=== PATIENT | male | born 1945 | race Caucasian/White ===

== ENCOUNTER → 2017-02-11 | Outpatient (CLI) | payer OTHER | END | disposition home or self-care (01) | LOC: GMAH 11:55 | PROVIDERS: ATTEND Family Medicine | DX: R63.0 Anorexia (principal) ==

== ENCOUNTER → 2017-02-18 | Outpatient (CLI) | payer OTHER ==
--- NOTE | 2017-02-18 20:53 | CT ---
EXAM DESCRIPTION: Abdomen/Pelvis w/o Contrast: CT. CLINICAL HISTORY: ANOREXIA COMPARISON: CT abdomen and pelvis 03/14/2016. TECHNIQUE: Spiral-axial scans at 5.0 mm intervals through the abdomen and pelvis after Gastrografin water-soluble oral contrast. Coronal and sagittal 2.0 mm reconstructions. No IV contrast. Total Exam DLP: 836.19 mGy-cm. This exam was performed according to our departmental CT dose-optimization program which includes automated exposure control, adjustment of the mA and/or kV according to patient size and/or use of iterative reconstruction technique; to reduce radiation dose to as low as reasonably achievable (ALARA). FINDINGS: Lung bases and pleura: Negative. Liver, spleen, stomach, and adrenal glands: Oral contrast in the stomach and duodenum which are normal caliber. Other organs are unremarkable. Pancreas/Gallbladder/Ducts: Gallbladder is visualized. Pancreas and ducts are negative. Kidneys and Ureters: Again noted is atrophy of the right kidney with cortical thinning and perinephric stranding. A millimeter radiodense stone in the inferior collecting system which is markedly dilated and extends into the proximally dilated right ureter with abrupt transition point to normal caliber at the level of the L4 vertebra. Radiodense material visualized in the lateral aspect of the distal dilated. This material measures 2.7 mm in diameter. Distal to this transition point, the right ureter is normal caliber. A stent in the kidney rather urinary bladder on the prior scan has been removed. 3.5 mm stone in the inferior collecting system of the left kidney but no hydronephrosis or hydroureter. Calcification in the pelvis abutting the distal left ureter and UVJ as well as bilateral surgical clips. No significant perinephric fluid or thickening around the left kidney. Pelvic Organs: No radiodense stones in the urinary bladder. Significant impression of the enlarged prostate gland indenting the base of the urinary bladder almost abutting the ureterovesical junctions. Calcification in the central and left aspect of the prostate gland which is also impressing on the seminal vesicles. No fluid in the anterior peritoneal reflection. Mesentery: Minimal perinephric thickening bilaterally right more than left. No free air or free fluid. Aorta: Atherosclerotic calcification more prevalent mid and distally. No definite aneurysm. Small Bowel: Contains oral contrast with minimal gas and no significant distention. Terminal Ileum/Cecum: Minimal oral contrast in the terminal ileum and cecum. Appendix is not visualized. Colon: Fecal material throughout the remainder of the colon including the rectosigmoid. No distention or significant air-fluid levels. Spine and bony pelvis: Spondylosis and grade 1 anterolisthesis of L5-S1 with bilateral significant foraminal narrowing. Spondylosis also at L2-3 with an L3-4 with bilateral foraminal narrowing significant at L2-3. Schmorl's node inferior L2. Minimal spondylosis in the included thoracic spine. No bone destruction.. Abdominal Wall/Back Soft Tissues: Unremarkable. IMPRESSION: 1. Right ureteral stent has been removed since the prior study. Trace hydronephrosis in the right kidney with cortical atrophy. Proximal right hydroureter with abrupt transition point at the L4 level and small calcification in the lateral distal aspect of the proximal dilated segment. Distal two thirds of the right ureter normal caliber. Normal caliber of the left ureter. Small bilateral intrarenal stones. 2. Enlarged prostate gland again noted to be impressing on the base of the urinary bladder. 3. L5-S1 spondylolisthesis with grade 1 anterolisthesis and bilateral significant foraminal narrowing. Also significant bilateral foraminal narrowing with spondylosis at L2-3. Table since the prior study. Electronically signed by: Rolan Acevedo MD 02/18/2017 8:51 PM [employer] Workstation: [employer]
== END | disposition home or self-care (01) ==
LOC: CT 09:07
PROVIDERS: ATTEND Family Medicine
DX: R63.0 Anorexia (principal)

== ENCOUNTER → 2017-04-04 | Outpatient (CLI) | payer OTHER | END | disposition home or self-care (01) | LOC: LAB.O 09:47 | PROVIDERS: ATTEND Internal Medicine Gastroenterology | DX: R19.7 Diarrhea, unspecified (principal) ==

== ENCOUNTER → 2017-04-05 | Outpatient (CLI) | payer OTHER ==
--- NOTE | 2017-04-05 14:40 | MRI ---
EXAM DESCRIPTION: Brain w/wo Contrast: Magnetic Resonance Imaging. CLINICAL HISTORY: ABNORMAL BRAIN SCAN. Loss of taste sensation. COMPARISON: None available. TECHNIQUE: Multiplanar, without MRI, multiple conventional sequences, without and with gadolinium IV contrast. No adverse reactions. Multiple axial diffusion sequences. FINDINGS: Small foci of bright FLAIR and T2-weighted signal in the subcortical white matter of the right frontal lobe at the level of the frontal horns and also at the right frontoparietal junction in the parasagittal region, near the vertex. A third lesion is in the subcortical white matter parasagittal right occipital lobe at the level of the mid occipital horns and third ventricle. These lesions are less than 5 mm diameter and are enhancing. Central signal dropout on 3-D postcontrast images. Also bright on all diffusion sequences. Not associated with significant mass effect or cerebral edema. Other small focal white matter lesions do not enhance. Normal signal in the bilateral basal ganglia, and normal enhancement. No hemorrhage, no cerebral edema, no mass-effect. Normal signal in the brainstem and cerebellar hemispheres. No hemorrhage, no cerebral edema, no mass-effect. Normal contrast enhancement. Cortical sulci, ventricles, and other CSF spaces, and the subdural spaces are age appropriate. No effacement or displacement. No midline shift. No extra-axial hemorrhage. Normal contrast enhancement. Normal flow signal void in the major vessels of the lovelock Garza, and the venous sinuses. IACs are symmetric bilaterally. No fluid signal in the bilateral mastoid air cells. No mass effect in the bilateral Cerebellopontine angles. Normal contrast enhancement. Pituitary gland occupies approximately 50% of the sella. Normal contrast enhancement. Base of the cerebellar tonsils is at the level of the foramen magnum. Mucoperiosteal thickening and air-fluid level in the right maxillary antrum. Diffuse mucosal thickening and fluid in the right nasal passageway. Yola bullosa left middle turbinate. Diffuse thickening and fluid in the anterior ethmoid air cells. Other paranasal sinuses are unremarkable. The bony calvarium is intact. IMPRESSION: 1. 3 lesions in the right hemisphere frontal parietal and occipital lobes. Less than 5 mm diameter with peripheral enhancement and central signal dropout, no significant mass effect or cerebral edema, right on all diffusion sequences, also bright T2 and FLAIR sequences. Low signal on T1 with no hemorrhage. Differential includes small embolic strokes, embolic inflammatory process, embolic tumor or infection. Nonembolic processes would be expected to be bilateral. There is minimal periventricular white matter changes which are most likely age-related. 2. No hemorrhage mass effect or cerebral edema or midline shift. No diffuse ischemia or infarction. Neurologic consult is recommended. 3. Acute and chronic inflammatory process in the right maxillary antrum, right nasal passage, and bilateral ethmoid air cells. Chronic process in the right frontal sinus. Yola bullosa in the left middle turbinate. CRITICAL COMMUNICATION: The critical value was discussed directly by phone with Dr. Jewell at approximately 1420 hours, on 04/05/2017. Electronically signed by: Rolan Acevedo MD 04/05/2017 2:39 PM [facility]
== END | disposition home or self-care (01) ==
LOC: MRI 08:41
PROVIDERS: ATTEND Internal Medicine Gastroenterology
DX: R94.02 Abnormal brain scan (principal)

== ENCOUNTER → 2017-04-18 | Outpatient (CLI) | payer OTHER | LOC: LAB.O 13:41 | PROVIDERS: ATTEND Psychiatry & Neurology Neurology | DX: M45.0 Ankylosing spondylitis of multiple sites in spine (principal); E03.9 Hypothyroidism, unspecified; E78.4 Other hyperlipidemia; G35 Multiple sclerosis; H81.49 Vertigo of central origin, unspecified ear; M32.10 Systemic lupus erythematosus, organ or system involvement unspecified; M35.1 Other overlap syndromes; G70.00 Myasthenia gravis without (acute) exacerbation; G04.89 Other myelitis; M54.81 Occipital neuralgia; H46.9 Unspecified optic neuritis; M81.8 Other osteoporosis without current pathological fracture; M35.3 Polymyalgia rheumatica; M33.22 Polymyositis with myopathy; G61.81 Chronic inflammatory demyelinating polyneuritis; I73.00 Raynaud's syndrome without gangrene; M06.9 Rheumatoid arthritis, unspecified; D86.9 Sarcoidosis, unspecified; M35.00 Sjogren syndrome, unspecified; M31.6 Other giant cell arteritis; G50.0 Trigeminal neuralgia; I77.9 Disorder of arteries and arterioles, unspecified; E53.8 Deficiency of other specified B group vitamins; E55.9 Vitamin D deficiency, unspecified ==

== ENCOUNTER → 2017-05-16 | Outpatient (CLI) | payer OTHER | LOC: LAB.O 12:22 | PROVIDERS: ATTEND Psychiatry & Neurology Neurology | DX: D47.2 Monoclonal gammopathy (principal) ==

== ENCOUNTER → 2017-07-17 | Outpatient (CLI) | payer OTHER | LOC: LAB.O 12:53 | PROVIDERS: ATTEND Internal Medicine Gastroenterology | DX: D50.0 Iron deficiency anemia secondary to blood loss (chronic) (principal) ==

== ENCOUNTER 2017-08-14 09:20 | Emergency (ER) | payer OTHER ==
--- NOTE | 2017-08-14 11:06 | RAD ---
EXAM DESCRIPTION: Chest,1 View CLINICAL HISTORY: 72 years Male, syncope COMPARISON: None. TECHNIQUE: AP portable chest. FINDINGS: Heart size is normal with normal pulmonary vascularity. Opaque right upper thorax is seen which could be atelectasis of the right upper lobe are previous pneumonectomy. Clinical correlation recommended. If this is a new development, CT of the chest is recommended to rule out central obstructing tumor with secondary atelectasis. No left-sided pulmonary mass or worrisome nodule. No pneumothorax or pleural effusion. Bones are unremarkable. IMPRESSION: Opacity of the right upper thorax suggesting right upper lobe atelectasis. CT of the chest is recommended. Electronically signed by: Jorgito Jose MD 08/14/2017 11:05 AM CDT
--- NOTE | 2017-08-14 14:02 | CT ---
EXAM DESCRIPTION: CTA Chest CLINICAL HISTORY: 72 years Male, mild hypoxia, syncope, mild low bp, ddimer COMPARISON: None available TECHNIQUE: Contiguous thin section axial images through the chest were obtained after the administration of intravenous contrast. Sagittal and coronal reconstructions were reviewed. FINDINGS: The visualized thyroid gland and supraclavicular region appear normal. No evidence of abnormally enlarged mediastinal, hilar or axillary lymphadenopathy. 12.5 x 8.8 x 11 cm mass is identified in the right upper lobe, encasing the right upper lobe bronchovascular structures. There is resultant abrupt cut off of the right upper lobe pulmonary artery. Remainder of the pulmonary vasculature appears normal. There is erosion of the right second rib. This is highly concerning for malignancy. There is a small right pleural effusion as well. No nodules are visualized in the left lung. The heart is normal in size with no pericardial effusion. The visualized aorta is nonaneurysmal with no significant atherosclerosis. The superior vena cava is normal in size and caliber. Minimal coronary artery atherosclerosis. The esophagus appears normal throughout its visualized length. Indeterminate hypodensity is identified in the upper pole of the right kidney. This most likely represents dilated renal pelvis. No other abnormality is noted in the imaged upper abdomen. There is erosion of the right second rib as mentioned above. Remainder of the visualized bones appear normal. Degenerative changes are identified in the thoracic spine. IMPRESSION: 4.5 x 8.8 x 11 cm mass is noted in the right upper lobe encasing the right upper lobe bronchovascular structures. There is resultant abrupt cut off of the right upper lobe pulmonary artery. Remainder of the pulmonary vasculature appears normal with no thrombus. Erosion of the right second rib is also noted secondary to the mass. Small right pleural effusion is noted. Indeterminate hypodensity is noted in the upper pole of the right kidney. This most likely represents dilated renal pelvis. This exam was performed according to our departmental dose-optimization program, which includes automated exposure control, adjustment of the mA and/or kV according to patient size and/or use of iterative reconstruction technique. Electronically signed by: Carey Zhao MD 08/14/2017 2:01 PM CDT
--- NOTE | 2017-08-14 14:07 | CT ---
EXAM DESCRIPTION: Head w/wo Contrast CLINICAL HISTORY: syncope, fu R abn from mri apr 04 COMPARISON: MRI of the brain dated 04/05/2017. TECHNIQUE: Contiguous axial images through the head were obtained before and after intravenous contrast administration. Sagittal and coronal reconstructions were reviewed. FINDINGS: Multiple ring-enhancing lesions are identified throughout the brain with surrounding vasogenic edema. The largest of these lesions measures 2.7 x 1.9 cm in the right frontal lobe adjacent to the falx. Differential considerations include metastasis versus abscess. Given the presence of lung mass metastasis is the high likely differential. No evidence of acute major vascular territorial infarct or intraparenchymal hemorrhage. No intra-axial or extra-axial fluid collections are identified. The ventricles and cisterns appear normal in caliber. The sella and suprasellar regions appear normal. The structures of the posterior fossa are intact. The globes are intact bilaterally. The visualized paranasal sinuses and mastoid air cells are well-aerated. Review of the bones demonstrates no gross instability. IMPRESSION: Multiple ring-enhancing lesions are identified throughout the brain with surrounding vasogenic edema. Differential considerations include metastasis versus abscess. Considering the presence of lung mass, metastasis is the high likely possibility. These changes have significantly worsened compared to prior MRI dated 04/05/2017. This exam was performed according to our departmental dose-optimization program, which includes automated exposure control, adjustment of the mA and/or kV according to patient size and/or use of iterative reconstruction technique. Electronically signed by: Carey Zhoa MD 08/14/2017 2:05 PM CDT
--- NOTE | 2017-08-14 14:58 | ED.PDOC ---
History of Present Illness - General Chief Complaint: Syncope/Near Syncope Stated Complaint: syncope Time Seen by Provider: 08/14/17 09:27 Source: patient Exam Limitations: no limitations - History of Present Illness Initial Comments: the patient is a 72-year-old male presenting to the emergency room secondary to a syncopal episode while standing at work this morning. He has felt increased fatigue over the last week or so. The patient has had one pupil dilated slightly more than the other for at least 6 months now. He has seen neurology with Dr. Ching in the past and did have an MRI in March that showed 3 right-sided lesions that were felt to be consistent with a embolic stroke. Since that time the patient has been on Plavix. He does have a history of BPH and sees a Dr. Pedro in [place]. No history of prostate cancer according to him. No history of any cancer. He denies any recent tobacco use though he did smoke in the past. The patient got dizzy and sweaty this morning and did pass out according to his coworkers. He did accidentally urinated on himself. No evidence of any seizure type activity. He was unconscious for less than a minute. By the time he arrived here he is mentating normally. nO evidence of any arrhythmia. No evidence of any chest pain. No previous episodes of syncope though he has had several near syncopal episodes over the last 6 months. Timing/Duration: unsure Severity: moderate Improving Factors: nothing Worsening Factors: nothing Associated Symptoms: denies symptoms Allergies/Adverse Reactions: Allergies NO KNOWN ALLERGY Allergy (Verified 08/14/17 09:38) Home Medications: Ambulatory Orders Clopidogrel Bisulfate 75 mg PO BEDTIME 08/14/17 Dutasteride 0.5 mg PO DAILY 08/14/17 Homeopathic Products [Zicam Allergy Relief] 1 gel NA PRN 08/14/17 Pantoprazole Tablet [Protonix] 40 mg PO ACBK 08/14/17 Potassium Citrate (Alkalinizer [Potassium Citrate ER] 10 meq PO DAILY 08/14/17 Review of Systems - Review of Systems Constitutional: States: malaise EENTM: States: no symptoms reported Respiratory: States: no symptoms reported Cardiology: States: no symptoms reported Gastrointestinal/Abdominal: States: no symptoms reported Genitourinary: States: no symptoms reported Musculoskeletal: States: other - chronic right shoulder pain Skin: States: no symptoms reported Neurological: States: see HPI Endocrine: States: no symptoms reported All other Systems: No Change from Baseline Past Medical History (General) - Patient Medical History Hx Congestive Heart Failure: No Hx Diabetes: No Surgical History: other - Vaccination History Hx Influenza Vaccination: No Hx Pneumococcal Vaccination: No - Social History Hx Tobacco Use: No Hx Alcohol Use: Yes - occasional Family Medical History - Family History Mother Family History: Unknown Physical Exam - Physical Exam General Appearance: Alert, Comfortable, No apparent distress Eye Exam: bilateral other - the left pupil is approximately 5 mm and the right pupil is 2 mm Ears, Nose, Throat: hearing grossly normal - chronic decreased bilaterally, normal ENT inspection, normal pharynx Neck: full range of motion, supple Respiratory: lungs clear, normal breath sounds, no respiratory distress, no accessory muscle use Cardiovascular/Chest: normal peripheral pulses, regular rate, rhythm, no edema Peripheral Pulses: radial,right: 2+, radial,left: 2+, dorsalis pedis,right: 2+, dorsalis pedis,left: 2+ Gastrointestinal/Abdominal: non tender, soft Rectal Exam: deferred Back Exam: normal inspection, no CVA tenderness, no vertebral tenderness Extremity: normal range of motion, non-tender, normal inspection, no pedal edema , normal capillary refill 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 He was found to have a large right upper lobe mass with what are likely metastases in the brain. The patient has been stable since his arrival here. The patient is going to be transferred to inpatient care at [facility]. This is for further evaluation of these and additional workup. The patient has elected to go by private vehicle with his driving. This should be low risk. This will be allowed due to the expected extended length of wait for transfer if he goes by ambulance. - Results/Orders Results/Orders: 08/14/17 09:50 Telemetry .CONTINUOUS Vital Signs-Tilt PRN 08/14/17 10:00 EKG STAT Laboratory Results - last 24 hr 08/14/17 08/14/17 08/14/17 09:12 09:12 10:08 WBC 16.2 H RBC 5.20 Hgb 12.1 L Hct 37.5 L MCV 72.2 L MCH 23.2 L MCHC 32.1 L RDW 17.0 H Plt Count 466 H MPV 7.8 Absolute Neuts (auto) 10.60 H Absolute Lymphs (auto) 3.20 Absolute Monos (auto) 2.00 H Absolute Eos (auto) 0.30 Absolute Basos (auto) 0.00 Neutrophils % 65.7 Lymphocytes % 20.1 Monocytes % 12.5 H Eosinophils % 1.6 Basophils % 0.1 Normal RBC Morphology Plts amrik increased D-Dimer, Quantitative 473 H* Sodium 137 Potassium 3.6 Chloride 99 L Carbon Dioxide 30 Anion Gap 11.6 L BUN 14 Creatinine 0.99 BUN/Creatinine Ratio 14.1 Random Glucose 121 H Serum Osmolality 275.5 Lactic Acid Calcium 10.5 H Magnesium 2.2 Total Bilirubin 0.4 AST 18 ALT 13 Alkaline Phosphatase 102 Creatine Kinase 30 L CK-MB (CK-2) 1.4 CK-MB (CK-2) % Not Reportable Troponin I < 0.02 B-Natriuretic Peptide 133.0 H Serum Total Protein 7.4 Albumin 3.3 Globulin 4.1 H Albumin/Globulin Ratio 0.8 L TSH 4.16 Urine Color Urine Appearance Urine pH Ur Specific [place] Urine Protein Urine Glucose (UA) Urine Ketones Urine Blood Urine Nitrite Urine Bilirubin Urine Urobilinogen Ur Leukocyte Esterase Urine RBC Urine WBC Ur Epithelial Cells Urine Bacteria 08/14/17 08/14/17 10:08 11:55 WBC RBC Hgb Hct MCV MCH MCHC RDW Plt Count MPV Absolute Neuts (auto) Absolute Lymphs (auto) Absolute Monos (auto) Absolute Eos (auto) Absolute Basos (auto) Neutrophils % Lymphocytes % Monocytes % Eosinophils % Basophils % Normal RBC Morphology D-Dimer, Quantitative Sodium Potassium Chloride Carbon Dioxide Anion Gap BUN Creatinine BUN/Creatinine Ratio Random Glucose Serum Osmolality Lactic Acid 1.0 Calcium Magnesium Total Bilirubin AST ALT Alkaline Phosphatase Creatine Kinase CK-MB (CK-2) CK-MB (CK-2) % Troponin I B-Natriuretic Peptide Serum Total Protein Albumin Globulin Albumin/Globulin Ratio TSH Urine Color Yellow Urine Appearance Sl cloudy Urine pH 7.0 Ur Specific [place] 1.015 Urine Protein Negative Urine Glucose (UA) Negative Urine Ketones Negative Urine Blood Moderate H Urine Nitrite Negative Urine Bilirubin Negative Urine Urobilinogen 0.2 Ur Leukocyte Esterase Negative Urine RBC 20-30 H Urine WBC 0 Ur Epithelial Cells 0-[address] scan of the head shows several ring-enhancing lesions. CT scan of the chest per PE protocol shows a large right upper lobe mass that is eating into the second rib. There is compression on the bronchovascular bundle going to the right upper lobe. No evidence of pulmonary embolus. See details on official report. Departure - Departure Clinical Impression: Lung mass, Brain metastases, Syncope Disposition: Transfer to Hospital Condition: Serious Departure Forms: ED Discharge - Pt. Copy, Patient Portal Self Enrollment Referrals: Wilian Landon MD [Primary Care Provider] - 1-2 Weeks Home Medications: Ambulatory Orders Clopidogrel Bisulfate 75 mg PO BEDTIME 08/14/17 Dutasteride 0.5 mg PO DAILY 08/14/17 Homeopathic Products [Zicam Allergy Relief] 1 gel NA PRN 08/14/17 Pantoprazole Tablet [Protonix] 40 mg PO ACBK 08/14/17 Potassium Citrate (Alkalinizer [Potassium Citrate ER] 10 meq PO DAILY 08/14/17 Transfer to Outside Facility - Transfer Information Accepting Provider:: dr martini Accepting Facility: [facility] Reason for Transfer: required specialist not available
[2017-08-14 16:39] VITALS: BP 113/68; TEMP 96.4; O2SAT 97
== END 2017-08-14 15:30 | disposition short-term general hospital (02) ==
LOC: ER 09:20
DX: R55 Syncope and collapse (principal); R91.8 Other nonspecific abnormal finding of lung field; C79.31 Secondary malignant neoplasm of brain; R53.81 Other malaise; Z79.02 Long term (current) use of antithrombotics/antiplatelets